=== PATIENT | female | born 1970 | race Caucasian/White ===

== ENCOUNTER → 2017-02-24 | Outpatient (CLI) | payer OTHER ==
[~2017-02-24] MED LIST: CEPHALEXIN500 M1 PO; IBU600 MG; NORCO 325 MG-51 TAB PO; NORCO 325 MG-7.1 TAB PO; PERCOCET 325 MG1 TA2 PO; PYRIDIUM200 M1 PO; VICODIN 5/300; ZOFRAN ODT4 MG PO
== END ==
LOC: COL.RAD 14:56
DX: N20.0 Calculus of kidney (principal); K42.9 Umbilical hernia without obstruction or gangrene

== ENCOUNTER → 2017-02-24 | Outpatient (CLI) | payer OTHER | LOC: COL.RAD 12:32 | DX: R10.11 Right upper quadrant pain (principal) ==

== ENCOUNTER → 2017-03-06 | Outpatient (CLI) | payer OTHER | LOC: COL.RAD 09:04 | DX: K57.92 Diverticulitis of intestine, part unspecified, without perforation or abscess without bleeding (principal); K42.9 Umbilical hernia without obstruction or gangrene; N28.1 Cyst of kidney, acquired; K76.89 Other specified diseases of liver | CPT/HCPCS: Q9967 ==

== ENCOUNTER → 2017-08-11 | Outpatient (CLI) | payer OTHER | LOC: MC.RAD 10:20 | DX: Z12.31 Encounter for screening mammogram for malignant neoplasm of breast (principal); R92.8 Other abnormal and inconclusive findings on diagnostic imaging of breast ==

== ENCOUNTER → 2017-08-15 | Outpatient (CLI) | payer OTHER | LOC: MC.RAD 08:21 | DX: R92.2 Inconclusive mammogram (principal) ==